=== PATIENT | female | born 1980 | race Caucasian/White ===

== ENCOUNTER 2020-02-28 16:30 | Emergency (ER) | payer OTHER, SELFPAY ==
--- NOTE | ~2020-02-28 | CT_ITS ---
EXAMINATION: CTA chest PE protocol DATE: 02/28/2020 17:51 INDICATION: Chest pain radiating to the back TECHNIQUE: Computed tomography (CT) pulmonary angiogram of the chest was performed with 100 mL Omnipa que-350 intravenous contrast. Additional 3D reconstructions utilizing coronal maximum intensity proje ction (MIP) were performed. Automated exposure control and iterative reconstruction technique were em ployed. The dose-length product was 194.17 mGy-cm. COMPARISON: None FINDINGS: Excellent contrast opacification of the pulmonary arteries. There is mild streak artifact from dense contrast in the superior vena cava and right atrium. Minimal motion artifact yielding does not signif icantly limit evaluation. No pulmonary embolism. Mild dependent subsegmental atelectasis in the bilat eral lower lobes. No pneumonia, pulmonary edema, pleural effusion or pneumothorax. Heart size is norm al. No pericardial effusion. Thoracic aorta is normal in caliber with no dissection. No pathologicall y enlarged thoracic lymphadenopathy. Bilateral breast implants. Visualized upper abdomen and bones ar e unremarkable. IMPRESSION: 1. No pulmonary embolism or other acute cardiopulmonary disease. Reviewed, dictated and finalized at location A.
--- NOTE | ~2020-02-28 | XR_ITS ---
EXAMINATION: XR chest 2V DATE: 02/28/2020 17:27 INDICATION: One day of Central chest pain TECHNIQUE: PA and lateral views of the chest were obtained. COMPARISON: Chest radiograph dated 10/04/2019 FINDINGS: The lungs remain clear with no focal airspace opacities, pulmonary edema, pleural effusion or pneumot horax. The cardiomediastinal silhouette is normal. Bilateral breast implants along with a few small s urgical clips along the anterior left and right chest wall. Bones are unremarkable. IMPRESSION: 1. No acute cardiopulmonary disease. Reviewed, dictated and finalized at location A.
--- NOTE | 2020-02-28 16:33 | ECG_ITS ---
Measurements Intervals [place] Rate: 64 P: 48 AL: 155 QRS: 33 QRSD: 97 T: 14 QT: 416 QTc: 429 Interpretive Statements SINUS RHYTHM INCOMPLETE RIGHT BUNDLE BRANCH BLOCK BORDERLINE ECG Electronically Signed On 02-29-2020 9:16:02 CDT by Live Ayala D.O.
[2020-02-28 16:40] VITALS: BP 175/110; PULSE 70; RESP 18; TEMP 36.5; O2SAT 100
--- NOTE | 2020-02-28 16:58 | ED.CHESTPAIN ---
HPI - Chest Pain General Chief Complaint: Chest Pain Stated Complaint: cp Time Seen by Provider: 02/28/20 16:38 History of Present Illness HPI narrative: Patient presents for chest pain for a couple days started beneath the left breast moved to the middle, then radiated to between her shoulder blades. She says currently between her shoulder blades and low 4 out of 10. She denies cough fever chills or sweats. She is worried it might have something to do with her breast reconstruction She was diagnosed with a breast mass in her 20s had bilateral mastectomy and implants. The mass was benign. She also complains of a headache and some diffuse rash. MD complaint: chest pain Pertinent past history: other (Bilateral mastectomy and breast implants.) Onset (ago): day(s) Timing of current episode: still present Prior episodes: No Onset: during rest Pain radiation: back Severity: moderate Quality: sharp Relieving factors: nothing Exacerbating factors: nothing Related Data Home Medications Medication Instructions Recorded Confirmed estradiol 2 mg tablet 2 mg PO HS 08/26/19 10/05/19 sertraline 100 mg PO HS 10/05/19 10/05/19 famotidine 40 mg tablet 40 mg PO DAILY 01/29/20 01/29/20 Allergies Allergy/AdvReac Type Severity Reaction Status Date / Time cefprozil Allergy Unknown unknown Verified 02/28/20 16:39 Review of Systems Review of Systems: Narrative: CONSTITUTIONAL: Denies fever, chills, or sweats. EYES: Denies visual changes, redness, or discharge. ENT: Denies rhinorrhea, congestion, sore throat, or otalgia. CARDIOVASCULAR: Denies palpitations, or edema. RESPIRATORY: Denies cough or dyspnea. GASTROINTESTINAL: Denies abdominal pain, nausea, vomiting, or diarrhea. GENITOURINARY: Denies dysuria or hematuria. SKIN: Denies itching. MUSCULOSKELETAL: Denies back pain, joint pain, or myalgia. NEUROLOGIC: Denies numbness, or weakness. PSYCHIATRIC: Denies anxiety or depression. [facility] Past Medical History Medical History Allergic rhinitis Anxiety disorder, unspecified Current moderate episode of major depressive disorder without prior episode Essential (primary) hypertension Not controlled Gastro-esophageal reflux disease without esophagitis History of breast cancer Status post bilateral mastectomy. No chemo radiation Hypothyroidism Irritable bowel syndrome with diarrhea Surgical History Surgical History H/O bilateral mastectomy Due to breast cancer. History of bladder surgery History of hysterectomy History of total hysterectomy Family History Family History Father Malignant neoplasm of prostate CAD (coronary artery disease) Acute myocardial infarction Lymphoma Hypertension Mother Family history of malignant neoplasm of breast in first degree relative Sibling Hypertension Grandparent Breast cancer Grandparent Cerebrovascular accident Social History Social History Social History: She is . She smokes a a 4th to half pack of cigarettes a day. 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 She has 3 daughters. Patient wishes to be a full code. She does not have a durable power ip technology transactions attorney. Smoking packs per day: 0.5 Smoking cigarettes per day: 10.0 Years smoked: 16 Smoking pack-years: 8.00 Smoking status: Light tobacco smoker Tobacco type: cigarettes Second hand tobacco smoke exposure: No Additional smoking assessment comments: Smokes 2-10 cigarettes a day on and off for 16 yrs Alcohol intake: current Drinks per week: 4 Substance use: never Gender identity (if verbalized by the patient): Female Spiritual care concerns: No Exam Narrative: Exam Narrative: GENERAL: Well-appearing, well-nourished, and in no acute distress. Well-groomed HEAD: Normocephalic, atraumatic.
[2020-02-28 17:00] LABS: Basophils Percent Auto 0.6 % (0.2-1.2); Eosinophils Absolute Auto 0.1 K/mm3 (0-0.3); Eosinophils Percent Auto 1.7 % (0-4.4); Hematocrit 39.1 % (37.0-47.0); Hemoglobin 13.4 g/dL (12.0-15.0); Immature Granulocyte Absolute 0.02 K/mm3 (0.00-0.031); Immature Granulocyte Percent A 0.3 % (0-0.5); Lymphocytes Absolute Auto 1.89 K/mm3 (0.9-3.2); Lymphocytes Percent Auto 26.2 % (18.3-44.2); Mean Corpuscular HGB Conc 34.3 g/dl (32-36); Mean Corpuscular Hemoglobin 31.1 pg (26-34); Mean Corpuscular Volume 90.7 fl (80-100); Monocytes Absolute Auto 0.5 K/mm3 (0.1-0.6); Monocytes Percent Auto 6.4 % (2.6-8.5); Neutrophils Absolute Auto 4.7 K/mm3 (1.3-6.7); Neutrophils Percent Auto 64.8 % (45.5-73.1); Platelet Count Result 222 k/mm3 (150-375); Red Blood Count 4.31 M/mm3 (4.2-5.4); Red Cell Distribution Width 12.9 % (11.5-14.5); White Blood Count 7.2 K/mm3 (4.5-10.0)
[2020-02-28 17:11] LABS: Blood Urea Nitrogen 14 mg/dL (7-17); Calcium 9.3 mg/dL (8.4-10.2); Carbon Dioxide 28 mmol/L (22-30); Chloride 103 mmol/L (98-107); Estimated CRCL calculation 78 ml/min; Estimated Glomerular Filt Rate > 60; Glucose 104 mg/dL (65-105); Potassium 3.5 mmol/L (3.4-5.0); Sodium 137 mmol/L (137-145)
[2020-02-28 17:15] LABS: INR 1.1; Prothrombin Time 13.5 Seconds (11.1-14.7)
[2020-02-28 17:16] LABS: Partial Thromboplastin Time 29.6 SECONDS (22.3-36.8)
[2020-02-28] MEDS: FAMOTIDINE 20 MG/2 ML VIAL IV PUSH (17:16)
[2020-02-28] MEDS: ASPIRIN 81 MG CHEWABLE TABLET 324 MG PO (17:16)
[2020-02-28 17:19] LABS: D Dimer 0.48 ug/mL (<0.48)
[2020-02-28 17:23] LABS: Troponin I < 0.012 ng/mL (0.000-0.034)
[2020-02-28 17:33] LABS: Ethanol < 10 mg/dL (<10)
[2020-02-28] MEDS: ACETAMINOPHEN 325 MG TABLET 650 MG PO (17:55)
--- NOTE | 2020-02-28 17:57 | PC.NURSE ---
PT UNHAPPY WITH PAIN MED ORDERS. PT ASKING FOR MORE PAIN MEDS. NO NEW ORDERS FROM THE PROVIDER AT THIS TIME
[2020-02-28 18:00] VITALS: BP 163/102; PULSE 67; RESP 16; O2SAT 97
[2020-02-28 18:33] LABS: Amphetamine Screen Urine Negative (Negative); Barbiturate Screen Urine Negative (Negative); Benzodiazepines Screen Urine Positive (Negative); Cannabinoid Screen Urine Negative (Negative); Cocaine Screen Urine Negative (Negative); Methadone Screen Urine Negative (Negative); Opiate Screen Urine Negative (Negative); Phencyclidine Screen Urine Negative (Negative)
[2020-02-28] MEDS: MORPHINE SULFATE 4 MG/ML INJ IV PUSH (18:45)
[2020-02-28] MEDS: ONDANSETRON INJ 4 MG/2 ML VIAL IV PUSH (18:49)
[2020-02-28 19:00] VITALS: BP 164/99; PULSE 60; RESP 18; O2SAT 99
== END 2020-02-28 19:00 | disposition home or self-care (01) ==
PROVIDERS: Emergency Provider Emergency Medicine; PCP Family Medicine
DX: R07.89 Other chest pain (principal); F41.9 Anxiety disorder, unspecified; F32.9 Major depressive disorder, single episode, unspecified; I10 Essential (primary) hypertension; Z85.3 Personal history of malignant neoplasm of breast; Z90.13 Acquired absence of bilateral breasts and nipples; E03.9 Hypothyroidism, unspecified; K58.0 Irritable bowel syndrome with diarrhea; F17.210 Nicotine dependence, cigarettes, uncomplicated; I45.10 Unspecified right bundle-branch block
CPT/HCPCS: 36415; 71046; 71275; 80048; 80307; 84484; 85025; 85380; 85610; 85730; 93005; 96374; 96375; 99284; A9270; J2270; J2405; Q9967

== ENCOUNTER 2020-03-19 13:04 | Emergency (ER) | payer OTHER, SELFPAY ==
[2020-03-19 13:14] VITALS: BP 147/96; PULSE 77; RESP 18; TEMP 36.5; O2SAT 99
--- NOTE | 2020-03-19 13:38 | ED.SKABFB ---
HPI - Skin/Abscess/Foreign Bdy General Chief complaint: Skin/Abscess/Foreign Body Stated complaint: allergic reaction Time Seen by Provider: 03/19/20 13:23 Source: patient, RN notes reviewed and old records reviewed Mode of arrival: ambulatory Limitations: no limitations History of Present Illness HPI narrative: Patient presents today complaining of a 5-day history of severely pruritic, red rash to bilateral arms and legs. States she has been working outside and is allergic to everything outside. Review of PCP chart shows that patient has been on allergy shots in the past for environmental allergies, but is no longer. States that she is overwhelmed with the itching. She has been taking a dose of benadryl at night, but no other OTC medications. She called her PCP office and was told to come in for an allergy shot. Denies shortness of breath, facial swelling, difficulty swallowing. Review of chart shows that patient was seen in the ER at [facility] on 02/28/20 for atypical chest pain and note states that patient also complained of diffuse rash at that time that was not noted to be present on exam findings. MD complaint: rash Related Data Home Medications Medication Instructions Recorded Confirmed estradiol 2 mg tablet 2 mg PO HS 08/26/19 03/19/20 sertraline 100 mg PO HS 10/05/19 03/19/20 famotidine 40 mg tablet 40 mg PO DAILY 01/29/20 03/19/20 Allergies Allergy/AdvReac Type Severity Reaction Status Date / Time cefprozil Allergy Unknown unknown Verified 03/19/20 13:12 Review of Systems Review of Systems: Narrative: CONSTITUTIONAL: Denies body aches, fever, chills, or sweats. EYES: Denies visual changes, redness, or discharge. ENT: Denies rhinorrhea, congestion, sore throat, or otalgia. CARDIOVASCULAR: Denies chest pain, palpitations, or edema. RESPIRATORY: Denies cough or dyspnea. GASTROINTESTINAL: Denies abdominal pain, nausea, vomiting, or diarrhea. GENITOURINARY: Denies dysuria or hematuria. SKIN: Severely pruritic rash MUSCULOSKELETAL: Denies back pain, joint pain, or myalgia. NEUROLOGIC: Denies headache, numbness, tingling, or weakness. PSYCH: Denies depression or anxiety. [facility] Social History Social History Social History: She is . She smokes a a 4th to half pack of cigarettes a day. 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 She has 3 daughters. Patient wishes to be a full code. She does not have a durable power ground crew chief. Smoking packs per day: 0.5 Smoking cigarettes per day: 10.0 Years smoked: 16 Smoking pack-years: 8.00 Smoking status: Light tobacco smoker Tobacco type: cigarettes Second hand tobacco smoke exposure: No Additional smoking assessment comments: Smokes 2-10 cigarettes a day on and off for 16 yrs Alcohol intake: current Drinks per week: 4 Substance use: never Gender identity (if verbalized by the patient): Female Spiritual care concerns: No Exam Narrative: Exam Narrative: GENERAL: Well-appearing, well-nourished, and in no acute distress. HEAD: Normocephalic, atraumatic. EYES: EOMI. No redness or drainage. Conjunctivae normal. ENT: Mucous membranes pink and moist. Nares clear. No rhinorrhea. TMs normal bilaterally. Throat normal. Uvula midline. No facial swelling. NECK: Normal AROM. Supple. No lymphadenopathy. CHEST: No respiratory distress. Clear to auscultation. HEART: Regular rate and rhythm. No murmur appreciated. Normal peripheral pulses. ABDOMEN: Soft, nontender, nondistended, normal active bowel sounds. MUSCULOSKELETAL: No bony tenderness. EXTREMITIES: Normal range of motion. No edema. SKIN: Warm, dry. Capillary refill normal. Normal skin turgor. Very faint, erythematous, macular rash to the right arm with a few scattered papules. No rash was noted to the left arm or either leg. NEURO: No focal deficits. Alert and oriented x3. Gait steady. PSYCH: Anxious Course Course Emergenc
== END 2020-03-19 14:00 | disposition home or self-care (01) ==
PROVIDERS: Emergency Provider Nurse Practitioner; PCP Family Medicine
DX: L25.9 Unspecified contact dermatitis, unspecified cause (principal); I10 Essential (primary) hypertension; K21.9 Gastro-esophageal reflux disease without esophagitis; F17.210 Nicotine dependence, cigarettes, uncomplicated
CPT/HCPCS: 96372; 99213; G0463; J1200

== ENCOUNTER 2020-08-20 14:14 | Emergency (ER) | payer OTHER, SELFPAY ==
[2020-08-20] VITALS (8 sets, daily range): BP systolic 149–170; BP diastolic 73–116; PULSE 54–93; RESP 15–20; TEMP 36.3; O2SAT 98–100
--- NOTE | ~2020-08-20 | XR_ITS ---
EXAMINATION: XR chest 2V DATE: 08/20/2020 14:49 INDICATION: Midsternal chest pain TECHNIQUE: PA and lateral views of the chest are obtained. COMPARISON: 02/28/2020 FINDINGS: The lungs are free of acute opacities. There is no pleural effusion or pneumothorax. The ca rdiomediastinal silhouette is normal. There is mild thoracic spondylosis. There are changes of bilate ral mastectomy with implant reconstruction. IMPRESSION: 1. No acute cardiopulmonary abnormality. Reviewed, dictated and finalized at location A. E RIDING COACH OR INSTRUCTOR
--- NOTE | 2020-08-20 14:16 | ECG_ITS ---
Measurements Intervals [place] Rate: 65 P: 49 MT: 148 QRS: 31 QRSD: 98 T: 26 QT: 415 QTc: 431 Interpretive Statements SINUS RHYTHM INCOMPLETE RIGHT BUNDLE BRANCH BLOCK BORDERLINE ECG Electronically Signed On 08-20-2020 14:40:35 TIMBER INSPECTOR by Live Ayala D.O.
[2020-08-20 14:52] LABS: Basophils Percent Auto 0.4 % (0.2-1.2); Eosinophils Absolute Auto 0.1 K/mm3 (0-0.3); Eosinophils Percent Auto 1.6 % (0-4.4); Hematocrit 36.2 % (37.0-47.0); Hemoglobin 12.3 g/dL (12.0-15.0); Immature Granulocyte Absolute 0.02 K/mm3 (0.00-0.031); Immature Granulocyte Percent A 0.3 % (0-0.5); Lymphocytes Absolute Auto 1.74 K/mm3 (0.9-3.2); Lymphocytes Percent Auto 24.8 % (18.3-44.2); Mean Corpuscular Hemoglobin 30.8 pg (26-34); Mean Corpuscular Volume 90.5 fl (80-100); Mean Platelet Volume 12.2 fl (7.4-10.4); Monocytes Absolute Auto 0.5 K/mm3 (0.1-0.6); Monocytes Percent Auto 6.7 % (2.6-8.5); Neutrophils Absolute Auto 4.7 K/mm3 (1.3-6.7); Neutrophils Percent Auto 66.2 % (45.5-73.1); Platelet Count Result 217 k/mm3 (150-375)
[2020-08-20 15:04] LABS: Anion Gap 8 mmol/L (8-16); Blood Urea Nitrogen 15 mg/dL (7-17); Calcium 9.5 mg/dL (8.4-10.2); Carbon Dioxide 30 mmol/L (22-30); Chloride 104 mmol/L (98-107); Estimated CRCL calculation 69 ml/min; Estimated Glomerular Filt Rate > 60; Glucose 91 mg/dL (65-105); Potassium 4.1 mmol/L (3.4-5.0); Sodium 142 mmol/L (137-145)
[2020-08-20 15:16] LABS: Troponin I < 0.012 ng/mL (0.000-0.034)
[2020-08-20 15:23] LABS: INR 0.9; Partial Thromboplastin Time 27.9 SECONDS (22.3-36.8)
[2020-08-20] MEDS: ONDANSETRON INJ 4 MG/2 ML VIAL IV PUSH (16:30)
--- NOTE | 2020-08-20 17:09 | ED.CHESTPAIN ---
HPI - Chest Pain General Chief Complaint: Chest Pain Stated Complaint: chest pain Time Seen by Provider: 08/20/20 15:53 History of Present Illness HPI narrative: Patient is a 40-year-old female who presents the ER from the cardiology office after reporting that she was having chest pain. She reports to me she has been having intermittent chest pain over the last year. It is in the center of her chest. Occasionally feels like pressure and also occasionally feels sharp. Sometimes it radiates up into her neck but she also has a known hiatal hernia. She only intermittently takes her acid reflux medication. Does not seem to be modified with exertion. Reports she had elevated blood pressures as well at the doctor's office and that is no reason why she was referred here. She reports she is compliant with her home medication does not typically have significantly elevated blood pressures. Patient also reports intermittent dizziness that is more like lightheaded nonrotational. No association with nausea or vomiting. She does also have IBS and is having some nausea at this time. Related Data Home Medications Medication Instructions Recorded Confirmed estradiol 2 mg tablet 2 mg PO HS 08/26/19 07/20/20 famotidine 40 mg tablet 40 mg PO DAILY 01/29/20 07/20/20 Allergies Allergy/AdvReac Type Severity Reaction Status Date / Time cefprozil Allergy Severe Anaphylaxis Verified 08/20/20 14:29 Review of Systems Review of Systems: All systems reviewed & are unremarkable except as noted in HPI and below Constitutional: Constitutional: Denies chills and Denies fever(s) ENT: Denies nasal congestion and Denies sore throat Cardiovascular: Cardiovascular: Reports chest pain, Denies rapid heart rate and Reports radiating jaw, neck or arm pain Respiratory: Respiratory: Denies cough and Denies dyspnea Gastrointestinal: Gastrointestinal: Denies abdominal pain, Reports nausea and Denies vomiting Neurologic: Reports dizziness, Denies focal weakness and Denies numbness PMFSH Past Medical History Medical History (Updated 08/20/20 @ 18:27 by Alex Solis MD) Allergic rhinitis Anxiety disorder, unspecified Current moderate episode of major depressive disorder without prior episode Essential (primary) hypertension Not controlled Gastro-esophageal reflux disease without esophagitis History of breast cancer Status post bilateral mastectomy. No chemo radiation Hypothyroidism Irritable bowel syndrome with diarrhea Surgical History Surgical History H/O bilateral mastectomy Due to breast cancer. History of bladder surgery History of hysterectomy History of total hysterectomy Family History Family History Father Malignant neoplasm of prostate CAD (coronary artery disease) Acute myocardial infarction Lymphoma Hypertension Mother Family history of malignant neoplasm of breast in first degree relative Sibling Hypertension Grandparent Breast cancer Grandparent Cerebrovascular accident Social History Social History Social History: She is . She smokes a a 4th to half pack of cigarettes a day. 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 Patient wishes to be a full code. She does not have a durable power trademark attorney. Smoking packs per day: 0.5 Smoking cigarettes per day: 10.0 Years smoked: 16 Smoking pack-years: 8.00 Smoking status: Light tobacco smoker Tobacco type: cigarettes Second hand tobacco smoke exposure: No Additional smoking assessment comments: Smokes 2-10 cigarettes a day on and off for 16 yrs Alcohol intake: current Drinks per week: 4 Substance use: never Gender identity (if verbalized by the patient): Female Spiritual care concerns: No Exam Narrative: Exam Narrative: GENERAL: Well-appearing, wel
[2020-08-20 17:52] LABS: Troponin I < 0.012 ng/mL (0.000-0.034)
== END 2020-08-20 19:02 | disposition home or self-care (01) ==
PROVIDERS: Emergency Provider Emergency Medicine; PCP Family Medicine
DX: R07.9 Chest pain, unspecified (principal); I10 Essential (primary) hypertension; K21.9 Gastro-esophageal reflux disease without esophagitis; Z85.3 Personal history of malignant neoplasm of breast; Z90.13 Acquired absence of bilateral breasts and nipples; E03.9 Hypothyroidism, unspecified; K58.0 Irritable bowel syndrome with diarrhea; F17.210 Nicotine dependence, cigarettes, uncomplicated
CPT/HCPCS: 36415; 71046; 80048; 84484; 85025; 85610; 85730; 93005; 96374; 99284; J2405

== ENCOUNTER 2020-09-21 11:58 | Outpatient (NON) | payer OTHER, SELFPAY ==
[2020-09-21 23:32] LABS: SARS-CoV-2 RNA PCR Negative
== END 2020-09-21 11:59 ==
LOC: ANHCOVIDDT 12:00
PROVIDERS: PCP Family Medicine; Visit Provider Physician Assistant
DX: R68.89 Other general symptoms and signs (principal); Z20.828 Contact with and (suspected) exposure to other viral communicable diseases
CPT/HCPCS: 87635; C9803; U0003

== ENCOUNTER 2021-01-12 20:47 | Observation (INO) | payer OTHER, SELFPAY ==
--- NOTE | ~2021-01-12 | XR_ITS ---
EXAMINATION: XR chest 2V DATE: 01/12/2021 21:22 INDICATION: Midsternal chest pain. TECHNIQUE: Frontal and lateral views of the chest were obtained. COMPARISON: Chest 2 views 08/20/2020, chest CT 02/28/2020 FINDINGS: The chest demonstrates clear lungs without pneumonia, pleural effusion, or pneumothorax. Th e heart size is normal. There are bilateral breast implants. Surgical clips in the right upper quadra nt are likely from cholecystectomy. IMPRESSION: 1. No acute cardiopulmonary disease. Reviewed, dictated and finalized at location A.
[2021-01-12 20:56] VITALS: BP 178/116; PULSE 78; RESP 16; TEMP 36.6; O2SAT 100
--- NOTE | 2021-01-12 21:04 | ECG_ITS ---
Measurements Intervals [place] Rate: 80 P: 55 MS: 159 QRS: 37 QRSD: 102 T: 19 QT: 402 QTc: 465 Interpretive Statements SINUS RHYTHM POSSIBLE LEFT ATRIAL ENLARGEMENT INCOMPLETE RIGHT BUNDLE BRANCH BLOCK BORDERLINE ST-T WAVE ABNORMALITY- ANTEROLAT/INF LEADS BORDERLINE ECG Electronically Signed On 01-13-2021 7:09:03 CDT by Live Ayala D.O.
--- NOTE | 2021-01-12 21:12 | ED.CHESTPAIN ---
HPI - Chest Pain General Chief Complaint: Chest Pain Stated Complaint: chest pain x 1 day Time Seen by Provider: 01/12/21 21:09 History of Present Illness HPI narrative: 40 yo female w/ h/o htn presents to the ED for chest pain. She reports that she has had CP intermittently since early this morning. The pain is substernal. Radiates to left shoulder. At times severe. This is associated with mild nausea and SOB. She has also noted that her blood pressure has been significantly elevated during this time. She tried nitro with some improvement in pain and blood pressure. Related Data Home Medications Medication Instructions Recorded Confirmed estradiol 2 mg tablet 2 mg PO HS 08/26/19 01/13/21 nitroglycerin 0.4 mg SUBLINGUAL Q5MIN PRN 01/13/21 01/13/21 omeprazole 20 mg PO DAILY 01/13/21 01/13/21 Allergies Allergy/AdvReac Type Severity Reaction Status Date / Time cefprozil Allergy Severe Anaphylaxis Verified 01/13/21 00:41 Review of Systems Review of Systems: All systems reviewed & are unremarkable except as noted in HPI and below Constitutional: Constitutional: Denies fever(s) Eyes: Eyes: Reports no additional eye complaints ENT: Reports system reviewed and no additional complaints, except as documented Cardiovascular: Cardiovascular: Reports chest pain and Reports radiating jaw, neck or arm pain Respiratory: Respiratory: Denies chest congestion, Denies cough and Reports dyspnea Gastrointestinal: Gastrointestinal: Denies abdominal pain and Reports nausea Genitourinary: Genitourinary: Reports no additional female genitourinary complaints Musculoskeletal: Musculoskeletal: Denies back pain Neurologic: Denies confusion, Denies dizziness and Denies weakness [facility] Past Medical History Medical History Allergic rhinitis Anxiety disorder, unspecified Current moderate episode of major depressive disorder without prior episode Essential (primary) hypertension Not controlled Gastro-esophageal reflux disease without esophagitis History of breast cancer Status post bilateral mastectomy. No chemo radiation Hypothyroidism Irritable bowel syndrome with diarrhea Surgical History Surgical History H/O bilateral mastectomy Due to breast cancer. History of bladder surgery History of cholecystectomy History of hysterectomy History of total hysterectomy Family History Family History Father Malignant neoplasm of prostate CAD (coronary artery disease) Acute myocardial infarction Lymphoma Hypertension Mother Family history of malignant neoplasm of breast in first degree relative Sibling Hypertension Grandparent Breast cancer Grandparent Cerebrovascular accident Social History Social History Social History: She is . She smokes a a 4th to half pack of cigarettes a day. 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 Patient wishes to be a full code. She does not have a durable power fluid power mechanic. Smoking packs per day: 0.5 Smoking cigarettes per day: 10.0 Years smoked: 16 Smoking pack-years: 8.00 Smoking status: Former smoker Tobacco type: cigarettes Second hand tobacco smoke exposure: No Additional smoking assessment comments: Smokes 2-10 cigarettes a day on and off for 16 yrs Alcohol intake: current Drinks per week: 4 Substance use: never Gender identity (if verbalized by the patient): Female Spiritual care concerns: No Exam Const: General: healthy appearing, no acute distress and alert Orientation/consciousness: patient oriented x3 HENMT: Head: normal to inspection Neck: Neck: normal visual inspection Chest: Chest palpation & inspection: no tenderness Resp: Effort & Inspection: normal respiratory effort Auscultation: clear to auscultati
[2021-01-12 21:15] LABS: Basophils Percent Auto 0.4 % (0.2-1.2); Eosinophils Absolute Auto 0.1 K/mm3 (0-0.3); Hematocrit 36.2 % (37.0-47.0); Hemoglobin 12.2 g/dL (12.0-15.0); Immature Granulocyte Absolute 0.01 K/mm3 (0.00-0.031); Immature Granulocyte Percent A 0.1 % (0-0.5); Lymphocytes Absolute Auto 2.23 K/mm3 (0.9-3.2); Lymphocytes Percent Auto 26.6 % (18.3-44.2); Mean Corpuscular HGB Conc 33.7 g/dl (32-36); Mean Corpuscular Hemoglobin 30.4 pg (26-34); Mean Corpuscular Volume 90.3 fl (80-100); Mean Platelet Volume 12.4 fl (7.4-10.4); Monocytes Absolute Auto 0.5 K/mm3 (0.1-0.6); Monocytes Percent Auto 5.7 % (2.6-8.5); Neutrophils Absolute Auto 5.6 K/mm3 (1.3-6.7); Neutrophils Percent Auto 66.2 % (45.5-73.1); Platelet Count Result 185 k/mm3 (150-375); Red Blood Count 4.01 M/mm3 (4.2-5.4); Red Cell Distribution Width 13.2 % (11.5-14.5); White Blood Count 8.4 K/mm3 (4.5-10.0)
[2021-01-12 21:25] LABS: Prothrombin Time 13.6 Seconds (11.1-14.7)
[2021-01-12 21:26] LABS: Anion Gap 7 mmol/L (8-16); Blood Urea Nitrogen 19 mg/dL (7-17); Carbon Dioxide 26 mmol/L (22-30); Chloride 105 mmol/L (98-107); Estimated CRCL calculation 78 ml/min; Estimated Glomerular Filt Rate > 60; Glucose 80 mg/dL (65-105); Partial Thromboplastin Time 28.6 SECONDS (22.3-36.8); Potassium 3.5 mmol/L (3.4-5.0); Sodium 138 mmol/L (137-145)
[2021-01-12 21:38] LABS: Troponin I < 0.012 ng/mL (0.000-0.034)
[2021-01-12] MEDS: NITROGLYCERIN OINTMENT 1 INCH DOSE TRANSDERM (21:53)
[2021-01-12] MEDS: ASPIRIN 81 MG CHEWABLE TABLET 324 MG PO (21:53)
[2021-01-12 22:02] VITALS: BP 167/118; PULSE 80; RESP 20; O2SAT 100
[2021-01-12] MEDS: ALPRAZolam (*CRX) 0.25 MG TABLET 1 MG PO (22:50)
[2021-01-13] VITALS (20 sets, daily range): BP systolic 131–149; BP diastolic 79–101; PULSE 69–93; RESP 11–19; TEMP 36.1–36.9; O2SAT 98–99; BMI 25.0
[2021-01-13] MEDS: hydrALAZINE HCL 20 MG/ML VIAL IV PUSH (00:07)
--- NOTE | 2021-01-13 00:19 | PM.IMHP ---
H&P: HPI History of Present Illness Date/Time: 01/13/21 00:19 Chief Complaint: chest pain yesterday all day Narrative: This is a 40-year-old female with known history of chronic hypertension, anxiety, and depression who presented to the hospital for evaluation of midsternal chest pain. The patient has had intermittent chest pain over the past few weeks and just recently had a stress test at her press maintainer's office about a week ago which was positive. The patient was scheduled to have an elective cardiac angiogram done this following Sunday. Today the patient decided to come to the emergency room as she has had ongoing continuous midsternal chest pain radiating to her left arm throughout the day today. Associated symptoms include nausea and shortness of breath. Nitroglycerin has helped to alleviated her chest pain somewhat although she continues to have some chest discomfort. Patient denies any other significant symptoms such as fever, chills, cough, palpitations, sore throat, shortness of breath, abdominal pain, dysuria, nausea, vomiting, hematuria, diarrhea, rectal bleeding, or lower extremity swelling. The patient is known to smoke about half a pack of cigarettes daily. She does report early heart disease in her family. Cardiology has been consulted by ER provider and we have been asked to admit the patient to the hospital for further care. Her initial troponin is negative and her initial EKG is unremarkable. No other complaints at this time. While in the emergency room the patient has had elevated blood pressure and she reports that she has had difficult to control hypertension recently at home. Review of Systems Review of Systems: All systems reviewed & are unremarkable except as noted in HPI and below PMFSH Past Medical History Medical History Allergic rhinitis Anxiety disorder, unspecified Current moderate episode of major depressive disorder without prior episode Essential (primary) hypertension Not controlled Gastro-esophageal reflux disease without esophagitis History of breast cancer Status post bilateral mastectomy. No chemo radiation Hypothyroidism Irritable bowel syndrome with diarrhea Surgical History Surgical History H/O bilateral mastectomy Due to breast cancer. History of bladder surgery History of cholecystectomy History of hysterectomy History of total hysterectomy Family History Family History Father Malignant neoplasm of prostate CAD (coronary artery disease) Acute myocardial infarction Lymphoma Hypertension Mother Family history of malignant neoplasm of breast in first degree relative Sibling Hypertension Grandparent Breast cancer Grandparent Cerebrovascular accident Social History Social History Social History: She is . She smokes a a 4th to half pack of cigarettes a day. 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 Patient wishes to be a full code. She does not have a durable power bankruptcy attorney. Smoking packs per day: 0.5 Smoking cigarettes per day: 10.0 Years smoked: 16 Smoking pack-years: 8.00 Smoking status: Current every day smoker Tobacco type: cigarettes Second hand tobacco smoke exposure: No Additional smoking assessment comments: Smokes 2-10 cigarettes a day on and off for 16 yrs Alcohol intake: current Drinks per week: 4 Substance use: never Gender identity (if verbalized by the patient): Female Spiritual care concerns: No Meds Home Medications and Allergies Home Medications Medication Instructions Recorded Confirmed Type estradiol 2 mg tablet 2 mg PO HS 08/26/19 07/20/20 History tramadol 50 mg tablet 50 mg PO Q6H PRN #15 tablet 05/04/20 07/20/20 Rx azelastine 137 mcg (0.1 %) nasal 1 spray I
--- NOTE | 2021-01-13 01:14 | ECG_ITS ---
Measurements Intervals [place] Rate: 86 P: 57 WI: 156 QRS: 42 QRSD: 105 T: 26 QT: 401 QTc: 481 Interpretive Statements SINUS RHYTHM POSSIBLE LEFT ATRIAL ENLARGEMENT INCOMPLETE RIGHT BUNDLE BRANCH BLOCK BORDERLINE ST-T WAVE ABNORMALITY- ANT/INF LEADS BASELINE ARTIFACT- III, AVR, AVL, AVF BORDERLINE ECG Electronically Signed On 01-13-2021 7:13:32 CDT by Live Ayala D.O.
[2021-01-13] MEDS: LORazepam (*CRX) 0.5 MG TABLET PO ×3 (01:27→20:37)
[2021-01-13] MEDS: ACETAMINOPHEN 325 MG TABLET 650 MG PO ×3 (01:27→16:30)
[2021-01-13 02:08] LABS: Troponin I < 0.012 ng/mL (0.000-0.034)
[2021-01-13] MEDS: ONDANSETRON INJ 4 MG/2 ML VIAL IV PUSH (02:36)
[2021-01-13] MEDS: MAG HYDROX/AL HYDROX/SIMETH 30 ML UDC PO (02:36)
[2021-01-13] MEDS: PROCHLORPERAZINE MALEATE 5 MG TABLET 10 MG PO (05:17)
[2021-01-13 05:51] LABS: Anion Gap 4 mmol/L (8-16); Blood Urea Nitrogen 14 mg/dL (7-17); Calcium 8.8 mg/dL (8.4-10.2); Carbon Dioxide 29 mmol/L (22-30); Chloride 106 mmol/L (98-107); Cholesterol 178 mg/dL (0-200); Estimated CRCL calculation 78 ml/min; Estimated Glomerular Filt Rate > 60; Glucose 84 mg/dL (65-105); HDL Direct 77 mg/dL; Lipase 29 U/L (23-300); Potassium 3.2 mmol/L (3.4-5.0); Sodium 139 mmol/L (137-145); Triglycerides 104 mg/dL (<150)
[2021-01-13 06:02] LABS: LDL Cholesterol Direct 79 mg/dL
[2021-01-13 06:03] LABS: Troponin I < 0.012 ng/mL (0.000-0.034)
[2021-01-13] MEDS: LEVOTHYROXINE SODIUM 25 MCG TABLET PO (09:18)
[2021-01-13] MEDS: PANTOPRAZOLE SOD SESQUIHYDRATE 20 MG TAB PO (09:19)
[2021-01-13] MEDS: lisinopriL 10 MG TABLET 30 MG PO (09:19)
[2021-01-13] MEDS: ASPIRIN 81 MG ENTERIC TABLET PO (09:20)
--- NOTE | 2021-01-13 10:50 | PM.CNCAR ---
Assessment and Plan Assessment and plan (1) Tobacco dependence: Code(s): F17.200 - Nicotine dependence, unspecified, uncomplicated Status: Chronic Assessment and Plan: Smoking cessation (2) Uncontrolled hypertension: Code(s): I10 - Essential (primary) hypertension Status: Acute Assessment and Plan: Blood pressure is better controlled at this point. Continue lisinopril. Will start carvedilol 6.25 mg p.o. b.i.d.. (3) Abnormal stress test: Code(s): R94.39 - Abnormal result of other cardiovascular function study Status: Acute Assessment and Plan: Abnormal stress test as an outpatient was performed. Plan was for outpatient elective coronary angiogram next week. (4) Recurrent chest pain: Code(s): R07.9 - Chest pain, unspecified Status: Acute Assessment and Plan: She has recurrent chest pain which is responsive to nitroglycerin. Certainly she has high blood pressure and anxiety component but given her recurrent chest pain, abnormal stress test; I think it is reasonable to keep her admitted at this point and pursue inpatient coronary angiogram. This will likely happen tomorrow. Will keep her NPO after midnight. Will give her dose of enoxaparin 1 milligram/kilogram subcu x1. Continue aspirin 81 mg p.o. daily, beta-hodan, CARLIN-inhibitor and p.r.n. nitroglycerin overnight. (5) Hypokalemia: Code(s): E87.6 - Hypokalemia Status: Acute Assessment and Plan: Potassium chloride 40 mg p.o. x1 (6) History of COVID-19: Code(s): Z86.16 - Personal history of COVID-19 Status: Acute History of Present Illness History of Present Illness Consult date/time: 01/13/21 10:50 Requesting physician: Amauri Shields MD Consult reason: chest pain Reason For Visit: chest pain, uncontrolled hypertension Narrative: Date of service 01/13/2021: Reason consultation chest pain History: Patient is a 40-year-old female who I saw in the office last month because of chest pain. She has previously been seen by a different cardiology group in the area but was referred to me for further workup and evaluation. She did undergo a stress test in 2019. She also had a stress test performed in December of 2020. Most recent stress test was abnormal with 1.[address] segment depressions at peak exercise as well as exercise-induced chest pressure which resolved in recovery. She was scheduled for an outpatient cardiac catheterization next Sunday. However she came to the hospital last night because chest pain. She woke up 2 days ago at 3:00 a.m. with chest pain in the center of her chest that radiated into her back. It lasted for a few minutes. It then spontaneously went away. She woke up a couple more times throughout the night with more episodes of chest pain. She went to work yesterday and had chest pain off and on throughout the day usually lasting for a few minutes. Last night though while at rest she had some radiation to her left shoulder and tingling down into her left arm. She has also been a bit diaphoretic and clammy with these episodes as well as nauseated. Symptoms are occurring with and without activity. Last night her symptoms were becoming more frequent and more painful and so she decided to come to the hospital for further workup and evaluation. She did use nitroglycerin at home which did seem to help but then it came back. She was started on nitroglycerin paste which did help but she did have a headache with that and the paste was removed this morning. I did start her on carvedilol as an outpatient because of high blood pressure recently and her blood pressure overall has been better but was significantly elevated upon arrival to the emergency department. She has also been short of breath with and without activity. She denies any syncope, paroxysmal nocturnal dyspnea, orthopnea or edema. She did have a presyncopal episode while at work yesterd
[2021-01-13] MEDS: carvediloL 6.25 MG TABLET PO ×2 (14:24→20:37)
[2021-01-13] MEDS: POTASSIUM CHLORIDE 20 MEQ TABLET 40 MEQ PO (14:24)
[2021-01-13] MEDS: ENOXAPARIN 80 MG/0.8 ML SYRINGE 65 MG SUB-Q (14:25)
--- NOTE | 2021-01-13 16:43 | PM.IMPN ---
Progress Note: A&P Assessment and Plan (1) Chest pain: Qualifiers: Chest pain type: unspecified Qualified Code(s): R07.9 - Chest pain, unspecified Code(s): R07.9 - Chest pain, unspecified Status: Acute Assessment and Plan: The patient has been placed in observation status. Acute chest pain may be secondary to anxiety, elevated blood pressure, musculoskeletal, or less likely acute coronary syndrome. Telemetry. NPO. Trend troponin. Patient has had a prior cholecystectomy. We will check a lipase that has not been done yet. Nitroglycerin for any further chest pain. Continue aspirin therapy. Cardiology has been consulted by ER provider. Check lipid panel in a.m.. Appreciate cardiology input. 01/13/21 16:43 and patient is a 40-year-old feet with chronic history hypertension, anxiety and depression with complaint recurrent chest pain patient presented emergency department complaint of chest pain patient 3 sets of cardiac enzymes are negative there is no acute changes on her EKG patient is seen by Cardiology since patient has recurrent chest pain it would be prudent to evaluate the patient with angiogram to assess coronary artery disease patient is scheduled for cardiac catheterization tomorrow further recommendation to follow (2) Uncontrolled hypertension: Code(s): I10 - Essential (primary) hypertension Status: Acute Assessment and Plan: Monitor blood pressure. P.r.n. IV antihypertensives as needed for severely elevated blood pressure. Continue home oral antihypertensives. (3) Hypothyroidism: Qualifiers: Hypothyroidism type: unspecified Qualified Code(s): E03.9 - Hypothyroidism, unspecified Code(s): E03.9 - Hypothyroidism, unspecified Status: Chronic Assessment and Plan: Continue levothyroxine. Check TSH reflex T4 in a.m.. (4) Anxiety disorder, unspecified: Qualifiers: Anxiety disorder type: unspecified anxiety disorder Qualified Code(s): F41.9 - Anxiety disorder, unspecified Code(s): F41.9 - Anxiety disorder, unspecified Status: Chronic Assessment and Plan: PRN ativan. Resume home xanax in am. (5) Current moderate episode of major depressive disorder without prior episode: Code(s): F32.1 - Major depressive disorder, single episode, moderate Status: Chronic Assessment and Plan: Continue Sertraline. (6) Tobacco dependence: Code(s): F17.200 - Nicotine dependence, unspecified, uncomplicated Status: Chronic Assessment and Plan: I have counseled the patient for 3 minutes on tobacco cessation. She has verbalized her understanding and agreement of same. Additional Plan Date of service was January 13, 2021 at approximately midnight Subjective Date/time seen: 01/13/21 16:43 and patient is a 40-year-old feet with chronic history hypertension, anxiety and depression with complaint recurrent chest pain patient presented emergency department complaint of chest pain patient 3 sets of cardiac enzymes are negative there is no acute changes on her EKG patient is seen by Cardiology since patient has recurrent chest pain it would be prudent to evaluate the patient with angiogram to assess coronary artery disease patient is scheduled for cardiac catheterization tomorrow further recommendation to follow Review of Systems Review of Systems: All systems reviewed & are unremarkable except as noted in HPI and below Exam Narrative: Exam Narrative: Patient is comfortable, NAD HEENT: eyes are clear and none icteric LUNGS:CTA HEART: RR S1S2 ABD: BS+, Soft and nontender Lower extremities: no edema SKIN: nonjaundiced Neuro: grossly intact. Objective Data Vital Signs Vital Signs: Vital Signs - 24 hr 01/12/21 20:56 01/12/21 22:02 01/13/21 00:40 Temperature 97.8 F Pulse Rate 78 80 90 Respiratory Rate 16 20 18 Blood Pressure 178/116 H 167/118 H 141/93 H Pulse Oximetry 100 100 99
[2021-01-13] MEDS: SERTRALINE HCL 50 MG TABLET 100 MG PO (20:37)
[2021-01-13] MEDS: estradioL 1 MG TABLET 2 MG PO (20:38)
--- NOTE | 2021-01-13 22:02 | PC.NURSE ---
Report given to Alejandra RN, patient to go to [facility] as IMU patient. No further questions. All belongings and chart gathered.
[2021-01-14] VITALS (23 sets, daily range): BP systolic 120–167; BP diastolic 80–106; PULSE 61–92; RESP 12–18; TEMP 36.3–36.9; O2SAT 97–100
[2021-01-14] MEDS: diphenhydrAMINE HCl CAP 25 MG CAPSULE PO (00:12)
[2021-01-14] MEDS: hydrALAZINE HCL 20 MG/ML VIAL 10 MG IV PUSH ×2 (00:13→12:20)
[2021-01-14] MEDS: ACETAMINOPHEN 325 MG TABLET 650 MG PO (01:59)
[2021-01-14] MEDS: LEVOTHYROXINE SODIUM 25 MCG TABLET PO (05:46)
--- NOTE | 2021-01-14 08:30 | PC.NURSE ---
DR CHRISTINE HERE TO SEE PT.
[2021-01-14] MEDS: ASPIRIN 81 MG ENTERIC TABLET PO (08:43)
[2021-01-14] MEDS: PANTOPRAZOLE SOD SESQUIHYDRATE 20 MG TAB PO (08:44)
[2021-01-14] MEDS: carvediloL 6.25 MG TABLET PO (08:44)
[2021-01-14] MEDS: lisinopriL 10 MG TABLET 30 MG PO (08:44)
[2021-01-14 08:53] LABS: Hematocrit 37.5 % (37.0-47.0); Hemoglobin 12.9 g/dL (12.0-15.0); Mean Corpuscular HGB Conc 34.4 g/dl (32-36); Mean Corpuscular Hemoglobin 30.6 pg (26-34); Mean Corpuscular Volume 89.1 fl (80-100); Platelet Count Result 180 k/mm3 (150-375); Red Blood Count 4.21 M/mm3 (4.2-5.4); Red Cell Distribution Width 13.1 % (11.5-14.5); White Blood Count 6.9 K/mm3 (4.5-10.0)
[2021-01-14 09:04] LABS: Anion Gap 3 mmol/L (8-16); Blood Urea Nitrogen 11 mg/dL (7-17); Calcium 8.8 mg/dL (8.4-10.2); Carbon Dioxide 30 mmol/L (22-30); Chloride 107 mmol/L (98-107); Estimated CRCL calculation 78 ml/min; Estimated Glomerular Filt Rate > 60; Glucose 99 mg/dL (65-105); Magnesium 1.9 mg/dL (1.6-2.3); Potassium 3.7 mmol/L (3.4-5.0); Sodium 140 mmol/L (137-145)
[2021-01-14] MEDS: LORATADINE 10 MG TABLET PO (09:28)
[2021-01-14] MEDS: ONDANSETRON INJ 4 MG/2 ML VIAL IV PUSH ×2 (09:28→15:00)
[2021-01-14] MEDS: SODIUM CHLORIDE 0.9% IV 500 ML 100 ML IV CONT (09:40)
--- NOTE | 2021-01-14 09:45 | WPDMODSED ---
Moderate Sedation Note-Pt Data Patient Data Diagnosis: long history of chest pain clinically felt to be atypical of coronary disease Present Complaint: recurrent chest pain with multiple hospital admissions, abnormal stress test done as an outpatient Procedure to be performed/Plan: left heart catheterization Allergies Allergy/AdvReac Type Severity Reaction Status Date / Time cefprozil Allergy Severe Anaphylaxis Verified 01/13/21 00:41 Home Medications Medication Instructions Recorded Confirmed Type estradiol 2 mg tablet 2 mg PO HS 08/26/19 01/13/21 History alprazolam 1 mg tablet 1 mg PO BID PRN #60 tablet 11/18/20 01/13/21 Rx levothyroxine 25 mcg capsule 25 mcg PO DAILY #90 cap 11/23/20 01/13/21 Rx sertraline 100 mg tablet 100 mg PO HS #90 tablet 11/23/20 01/13/21 Rx lisinopril 30 mg tablet 30 mg PO DAILY #30 tablet 01/03/21 01/13/21 Rx nitroglycerin 0.4 mg SUBLINGUAL Q5MIN PRN 01/13/21 01/13/21 History omeprazole 20 mg PO DAILY 01/13/21 01/13/21 History Current Medications: Active Medications Acetaminophen (Acetaminophen 325 Mg Tablet) 650 mg PO Q4H PRN PRN Reason: Mild Pain (1-3) or Fever Last Admin: 01/14/21 01:59 Dose: 650 mg Documented by: Al Hydrox/Mg Hydrox/Simethicone (Mag Hydrox/Al Hydrox/Simeth 30 Ml Udc) 30 ml PO Q6H PRN PRN Reason: Indigestion Last Admin: 01/13/21 02:36 Dose: 30 ml Documented by: Aspirin (Aspirin 81 Mg Enteric Tablet) [address] [facility] Last Admin: 01/14/21 08:43 Dose: 81 mg Documented by: Carvedilol (Carvedilol 6.25 Mg Tablet) 6.25 mg PO Q12HR [facility] Last Admin: 01/14/21 08:44 Dose: 6.25 mg Documented by: Estradiol (Estradiol 1 Mg Tablet) 2 mg PO [facility] Stop: 02/12/21 21:01 Last Admin: 01/13/21 20:38 Dose: 2 mg Documented by: Hydralazine HCl (Hydralazine Hcl 20 Mg/Ml Vial) 10 mg IV PUSH Q8H PRN PRN Reason: see comment Stop: 01/15/21 07:00 Last Admin: 01/14/21 00:13 Dose: 10 mg Documented by: Sodium Chloride (Normal Saline Iv) 500 mls @ 100 mls/hr IV CONT .Q5H [facility] Levothyroxine Sodium (Levothyroxine Sodium 25 Mcg Tablet) 25 mcg PO DAILY@0630 [facility] Last Admin: 01/14/21 05:46 Dose: 25 mcg Documented by: Lisinopril (Lisinopril 10 Mg Tablet) 30 mg PO DAILY [facility] Last Admin: 01/14/21 08:44 Dose: 30 mg Documented by: Loratadine (Loratadine 10 Mg Tablet) 10 mg PO QAM [facility] Nitroglycerin (Nitroglycerin Sl 0.4 Mg Tablet) 0.4 mg SUBLINGUAL Q5MIN PRN PRN Reason: Chest Pain Pantoprazole Sodium (Pantoprazole Sod Sesquihydrate 20 Mg Tab) 20 mg PO QAM [facility] Last Admin: 01/14/21 08:44 Dose: 20 mg Documented by: Sertraline HCl (Sertraline Hcl 50 Mg Tablet) 100 mg PO [facility] Last Admin: 01/13/21 20:37 Dose: 100 mg Documented by: Sedation/Anesthesia: No previous sedation/anesthesia problems (including family history). [facility] Past Medical History Medical History Allergic rhinitis Anxiety disorder, unspecified Current moderate episode of major depressive disorder without prior episode Essential (primary) hypertension Not controlled Gastro-esophageal reflux disease without esophagitis History of breast cancer Status post bilateral mastectomy. No chemo radiation Hypothyroidism Irritable bowel syndrome with diarrhea Surgical History Surgical History H/O bilateral mastectomy Due to breast cancer. History of bladder surgery History of cholecystectomy History of hysterectomy History of total hysterectomy Family History Family History Father Malignant neoplasm of prostate CAD (coronary artery disease) Acute myocardial infarction Lymphoma Hypertension Mother Family history of malignant neoplasm of breast in first degree relative Sibling Hypertension Grandparent Breast cancer Grandparent Cerebrovascular accident Social History Social History (Reviewed 01/13/21 @ 10:57 by Joni
--- NOTE | 2021-01-14 09:50 | PC.NURSE ---
DR. PRADO TO BEDSIDE TO SEE PT. PRIOR TO CARDIAC CATH. PT. DENIES CP OR SOB THIS AM.
--- NOTE | 2021-01-14 10:05 | PC.NURSE ---
DOWN VIA STRETCHER FROM [facility] 3 TO [facility] OF [facility] FOR [facility] W/ DR. PRADO.
--- NOTE | 2021-01-14 10:46 | WPDCARDPROC ---
Cardiac Cath Procedure Note Date of procedure:: 01/14/21 Performing physician:: Cornelius Sosa MD Indication:: Chest pain Brief clinical history:: this is a 40-year-old woman with hypertension and smoking. She has a history of multiple admissions to the emergency room and hospital evaluations for chest pain that appears to be atypical of angina. Stress testing as an outpatient showed some electrocardiographic findings suggestive of ischemia and so an angiogram has been recommended Procedure Procedure performed:: left ventriculography coronary angiography Angio-Seal to right femoral artery Sedation/Medication given:: fentanyl 75 mg Versed 3 mg case start time 10 17 a.m. case end time 10:44 a.m. sedation provided by Maryann Morelos RN, trained observer Access site:: right femoral artery Estimated blood loss:: 10-15 cc Procedure note:: patient was brought to the cardiac catheterization lab in the postabsorptive state the right femoral triangle was prepared and draped in the usual fashion. Anesthesia was provided with 1% lidocaine infiltrated locally. Using modified Seldinger technique a 5 Nepalese sheath was placed into the femoral artery after this left heart catheterization was carried out a 5 Nepalese angled pigtail catheter used to document left-sided hemodynamics and injected LV g in the HARRIS projection. Following this the pigtail catheter was withdrawn and a 5 Nepalese FL4 catheter was used to engage and inject the left coronary artery a 5 Nepalese JR4 catheter was used to engage and inject the right coronary artery. After this the procedure was terminated angiogram was done of the femoral artery through the sheath after which a 6 Nepalese Angio-Seal device was deployed with a good hemostatic result. Findings:: Hemodynamics: Central aortic pressure is 155/85 left ventricle 155/3 end-diastolic pressure 10 there is no systolic gradient on pullback across the aortic valve. Left ventricle: The LV is normal in size all segments contract well there were no wall motion abnormalities. Ejection fraction is visually estimated to be 65%. Left main coronary artery is nicely patent the left anterior descending is a medium to small caliber artery. Distally the caliber of the LAD is rather small but it is free of atherosclerosis. Circumflex artery is medium in caliber giving rise to 2 marginal branches the circumflex is angiographically unremarkable right coronary artery is medium in caliber and dominant to the posterior circulation the right coronary artery is smooth and angiographically normal. Conclusion:: 1. Right coronary dominant circulation with no evidence of coronary disease 2. normal left ventricular systolic function 3. Angio-Seal to right femoral artery 4. chest pain syndrome appears to be noncardiac based on these findings Cornelius Sosa MD [facility]
[2021-01-14] MEDS: HYDROcodone/acetaminophen (*CRX) 5-325 MG TABLET 1 TAB PO (11:49)
--- NOTE | 2021-01-14 11:50 | PM.DS ---
DS: Admitting Diagnosis Admitting Diagnosis Admitting Diagnosis: Chief Complaint: chest pain yesterday all day DS: Discharge Diagnosis Discharge Diagnosis (1) Chest pain: Qualifiers: Chest pain type: unspecified Qualified Code(s): R07.9 - Chest pain, unspecified Code(s): R07.9 - Chest pain, unspecified Status: Acute Assessment and Plan: The patient has been placed in observation status. Acute chest pain may be secondary to anxiety, elevated blood pressure, musculoskeletal, or less likely acute coronary syndrome. Telemetry. NPO. Trend troponin. Patient has had a prior cholecystectomy. We will check a lipase that has not been done yet. Nitroglycerin for any further chest pain. Continue aspirin therapy. Cardiology has been consulted by ER provider. Check lipid panel in a.m.. Appreciate cardiology input. 01/13/21 16:43 and patient is a 40-year-old feet with chronic history hypertension, anxiety and depression with complaint recurrent chest pain patient presented emergency department complaint of chest pain patient 3 sets of cardiac enzymes are negative there is no acute changes on her EKG patient is seen by Cardiology since patient has recurrent chest pain it would be prudent to evaluate the patient with angiogram to assess coronary artery disease patient is scheduled for cardiac catheterization tomorrow further recommendation to follow (2) Uncontrolled hypertension: Code(s): I10 - Essential (primary) hypertension Status: Acute Assessment and Plan: Monitor blood pressure. P.r.n. IV antihypertensives as needed for severely elevated blood pressure. Continue home oral antihypertensives. (3) Hypothyroidism: Qualifiers: Hypothyroidism type: unspecified Qualified Code(s): E03.9 - Hypothyroidism, unspecified Code(s): E03.9 - Hypothyroidism, unspecified Status: Chronic Assessment and Plan: Continue levothyroxine. Check TSH reflex T4 in a.m.. (4) Anxiety disorder, unspecified: Qualifiers: Anxiety disorder type: unspecified anxiety disorder Qualified Code(s): F41.9 - Anxiety disorder, unspecified Code(s): F41.9 - Anxiety disorder, unspecified Status: Chronic Assessment and Plan: PRN ativan. Resume home xanax in am. (5) Current moderate episode of major depressive disorder without prior episode: Code(s): F32.1 - Major depressive disorder, single episode, moderate Status: Chronic Assessment and Plan: Continue Sertraline. (6) Tobacco dependence: Code(s): F17.200 - Nicotine dependence, unspecified, uncomplicated Status: Chronic Assessment and Plan: I have counseled the patient for 3 minutes on tobacco cessation. She has verbalized her understanding and agreement of same. DS: Summary Hospital Course Reason for hospitalization: Chief Complaint: chest pain yesterday all day Narrative: This is a 40-year-old female with known history of chronic hypertension, anxiety, and depression who presented to the hospital for evaluation of midsternal chest pain. 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 The patient was scheduled to have an elective cardiac angiogram done this following Sunday. Today the patient decided to come to the emergency room as she has had ongoing continuous midsternal chest pain radiating to her left arm throughout the day today. Associated symptoms include nausea and shortness of breath. Nitroglycerin has helped to alleviated her chest pain somewhat although she continues to have some chest discomfort. Patient denies any other significant symptoms such as fever, chills, cough, palpitations, sore throat, shortness of breath, abdominal pain, dysuria, nausea, vomiting, hematuria, diarrhea, rectal bleeding, or lower extremity swelling. The pat
--- NOTE | 2021-01-14 12:01 | PC.NURSE ---
RETURNS TO [facility] CHARTING AFTER PHASE II RECOVERY S/P [facility] W/ DR. PRADO. JUST RECEIVED NORCO 5/325MG PO X 1 AT 1149 FOR C/O R. GROIN/THIGH PAIN POST PROCEDURE/ANGIOSEAL. R. GROIN SITE REMAINS SOFT, NO HEMATOMA OR BLEEDING NOTED. IS TENDER ON PALPATION. PT. W/ ANXIETY. REASSURANCE GIVEN AND SIG OTHER AT BEDSIDE FOR SUPPORT. WILL CONTINUE TO MONITOR.
--- NOTE | 2021-01-14 17:25 | PC.NURSE ---
REVIEWED ALL DISCHARGE INSTRUCTIONS W/ PT. VOICED UNDERSTANDING. DISCHARGED HOME, OUT VIA WC TO SIG OTHER'S WAITING CAR WITH ALL PERSONAL BELONGINGS AND DISCHARGE PACKET. NO DISTRESS NOTED. NO C/O VOICED.
== END 2021-01-14 17:25 | disposition home or self-care (01) ==
LOC: ANHED 21:09 → ANHICU 01-13 03:31 → ANHCPC 01-14 11:50 → ANHICU 01-18 09:26
PROVIDERS: Emergency Medicine; Specialist; Admitting Provider Family Medicine; Emergency Provider Emergency Medicine; PCP Family Medicine; Visit Provider Family Medicine
PROC: 4A023N7 Measurement of Cardiac Sampling and Pressure, Left Heart, Percutaneous Approach (ICD-10-PCS; CPT 93452; principal; 2021-01-14 10:00)
DX: R07.9 Chest pain, unspecified (principal); R94.39 Abnormal result of other cardiovascular function study; E87.6 Hypokalemia; R06.02 Shortness of breath; R11.0 Nausea; I10 Essential (primary) hypertension; F41.9 Anxiety disorder, unspecified; F32.1 Major depressive disorder, single episode, moderate; E03.9 Hypothyroidism, unspecified; K58.0 Irritable bowel syndrome with diarrhea; K21.9 Gastro-esophageal reflux disease without esophagitis; Z85.3 Personal history of malignant neoplasm of breast; Z90.13 Acquired absence of bilateral breasts and nipples; F17.210 Nicotine dependence, cigarettes, uncomplicated; Z86.16 Personal history of COVID-19
CPT/HCPCS: 36415; 71046; 80048; 80061; 83690; 83735; 84443; 84484; 85025; 85027; 85610; 85730; 93005; 93458; 96365; 96372; 96374; 96375; 96376; 99285; A9270; C1760; C1887; C1894; G0269; G0378; J0131; J0360; J1644; J1650; J2250; J2405; J3010; J7040

== ENCOUNTER 2021-07-30 09:07 | Emergency (ER) | payer OTHER, SELFPAY ==
[2021-07-30 09:17] VITALS: BP 125/86; PULSE 83; RESP 18; TEMP 36; O2SAT 100
--- NOTE | 2021-07-30 09:52 | ED.URI ---
HPI - URI/Sore Throat General Chief Complaint: Upper Respiratory Infection Stated Complaint: Sore Throat,Ear Pain Time Seen by Provider: 07/30/21 09:45 Source: patient Mode of arrival: ambulatory Limitations: no limitations History of Present Illness HPI Narrative: Lise Apple is a 41 yo female with PMH of HTN, hypothyroid, anxiety, GERD, depression, seasonal allergies, who comes to [facility] with multiple respiratory symptoms. He started for 5 days ago and she has been taking [id number]-tprosek cold medication which is helped some things but she generally feels under the weather has a dry cough, subjective fever Has received both Cov[employer]ascale vaccines Related Data Home Medications Medication Instructions Recorded Confirmed estradiol 2 mg tablet 2 mg PO HS 08/26/19 01/13/21 nitroglycerin 0.4 mg SUBLINGUAL Q5MIN PRN 01/13/21 01/13/21 omeprazole 20 mg PO DAILY 01/13/21 01/13/21 Allergies Allergy/AdvReac Type Severity Reaction Status Date / Time cefprozil Allergy Severe Anaphylaxis Verified 01/13/21 00:41 Review of Systems Review of Systems: CONSTITUTIONAL: Subjective fever, chills, sweats. EYES: Denies visual changes, redness, discharge. ENT: Has rhinorrhea, congestion,has sore throat, bilateral otalgia. CARDIOVASCULAR: Denies chest pain, palpitations, edema. RESPIRATORY: Denies dyspnea, wheezing, dry cough GASTROINTESTINAL: Denies abdominal pain, nausea, vomiting, diarrhea. GENITOURINARY: Denies dysuria, hematuria, abnormal discharge SKIN: Denies rash or itching. NEUROLOGIC: Denies numbness, or focal weakness. PSYCHIATRIC: Denies anxiety or depression. [facility] Past Medical History Medical History Allergic rhinitis Anxiety disorder, unspecified Current moderate episode of major depressive disorder without prior episode Essential (primary) hypertension Not controlled Gastro-esophageal reflux disease without esophagitis History of breast cancer Status post bilateral mastectomy. No chemo radiation Hypothyroidism Irritable bowel syndrome with diarrhea Surgical History Surgical History H/O bilateral mastectomy Due to breast cancer. History of bladder surgery History of cardiac catheterization Cath was negative 01/14/2021 History of cholecystectomy History of hysterectomy History of total hysterectomy Family History Family History Father Malignant neoplasm of prostate CAD (coronary artery disease) Acute myocardial infarction Lymphoma Hypertension Mother Family history of malignant neoplasm of breast in first degree relative Sibling Hypertension Grandparent Breast cancer Grandparent Cerebrovascular accident Social History Social History Social History: She is . She smokes a a 4th to half pack of cigarettes a day. 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 She has 3 daughters. Patient wishes to be a full code. She does not have a durable power managing attorney. Smoking packs per day: 0.5 Smoking cigarettes per day: 10.0 Years smoked: 16 Smoking pack-years: 8.00 Smoking status: Former smoker Tobacco type: cigarettes Second hand tobacco smoke exposure: No Additional smoking assessment comments: Smokes 2-10 cigarettes a day on and off for 16 yrs Alcohol intake: current Drinks per week: 4 Alcohol use details: Drinks socially Substance use: never Gender identity (if verbalized by the patient): Female Spiritual care concerns: No Comments Minor Exam Narrative: GENERAL: This is a well-nourished, well-developed patient, in mild distress. HEAD: normocephalic, atraumatic. EYES:. Sclera clear/white. Vision is grossly intact. EARS: External ears normal, auditory canals erythema and without drainage, with fluid behind both TMs . Hearing grossly intact
== END 2021-07-30 10:39 | disposition home or self-care (01) ==
PROVIDERS: Emergency Provider Nurse Practitioner; PCP Family Medicine
DX: H92.03 Otalgia, bilateral (principal); R09.89 Other specified symptoms and signs involving the circulatory and respiratory systems; Z87.891 Personal history of nicotine dependence; K21.9 Gastro-esophageal reflux disease without esophagitis; E03.9 Hypothyroidism, unspecified; Z85.3 Personal history of malignant neoplasm of breast; Z90.13 Acquired absence of bilateral breasts and nipples; Z90.710 Acquired absence of both cervix and uterus; F41.9 Anxiety disorder, unspecified; F32.9 Major depressive disorder, single episode, unspecified
CPT/HCPCS: 87081; 87804; 87880; 99213; G0463

== ENCOUNTER → 2021-08-05 05:29 | Outpatient (CLI) | payer OTHER, SELFPAY ==
[2021-08-05 16:43] LABS: SARS-CoV-2 RNA PCR Negative
== END ==
PROVIDERS: PCP Family Medicine; Visit Provider Physician Assistant
DX: R05.9 Cough, unspecified (principal); Z20.822 Contact with and (suspected) exposure to COVID-19
CPT/HCPCS: C9803; U0003; U0005

== ENCOUNTER → 2022-06-28 08:03 | Outpatient (CLI) | payer OTHER, SELFPAY ==
--- NOTE | ~2022-06-28 | US_ITS ---
EXAMINATION: US retroperitoneal duplex ltd DATE: 06/28/2022 08:25 INDICATION: hypertension TECHNIQUE: Multiple grayscale, color Doppler, and pulsed Doppler images of the kidneys and renal edinson selina were obtained. COMPARISON: None. FINDINGS: The aorta peak systolic velocity is 106 cm/s. The right renal artery peak systolic velocity is 105 cm /s in the proximal segment, 97 cm/s in the mid segment, and 78 cm/s in the distal segment. The left r enal artery peak systolic velocity is 102 cm/s in the proximal segment, 96 cm/s in the mid segment, a nd 108 cm/s in the distal segment. Bilateral kidneys demonstrate normal contour and echogenicity with no hydronephrosis. IMPRESSION: 1. No Doppler evidence of renal artery stenosis. Reviewed, dictated and finalized at location A.
== END ==
PROVIDERS: PCP Internal Medicine Cardiovascular Disease; Visit Provider Internal Medicine Cardiovascular Disease
DX: I10 Essential (primary) hypertension (principal)
CPT/HCPCS: 93976

== ENCOUNTER 2022-12-15 11:45 | Emergency (ER) | payer OTHER, SELFPAY ==
[2022-12-15] VITALS (23 sets, daily range): BP systolic 165–194; BP diastolic 92–131; PULSE 60–76; RESP 11–25; TEMP 36.7; O2SAT 94–100
--- NOTE | ~2022-12-15 | XR_ITS ---
Clinical Indication: Chest pain PA and lateral views of the chest: Comparison: 01/12/2021 Findings: The lungs are clear, without evidence of focal consolidation or pleural effusion. Cardiome diastinal silhouette is within normal limits. Bones and soft tissues are unremarkable. Impression: Normal chest. Reviewed, dictated and finalized at location . DISPENSER Impression: Normal chest.
--- NOTE | 2022-12-15 12:09 | ECG_ITS ---
Measurements Intervals [place] Rate: 63 P: 41 MN: 148 QRS: 39 QRSD: 97 T: 38 QT: 411 QTc: 422 Interpretive Statements SINUS RHYTHM INCOMPLETE RIGHT BUNDLE BRANCH BLOCK DELAYED PRECORDIAL R/S TRANSITION BASELINE ARTIFACT- I, II, AVR BORDERLINE ECG COMPARED TO ECG 01/13/2021 01:14:08 NO SIGNIFICANT CHANGES Electronically Signed On 12-15-2022 16:49:29 ADVERTISING SALES MANAGER by Live Ayala D.O.
[2022-12-15 12:42] LABS: Basophils Percent Auto 0.4 % (0.2-1.2); Eosinophils Absolute Auto 0.1 K/mm3 (0-0.3); Eosinophils Percent Auto 1.1 % (0-4.4); Hematocrit 39.5 % (37.0-47.0); Hemoglobin 13.1 g/dL (12.0-15.0); Immature Granulocyte Absolute 0.02 K/mm3 (0.00-0.031); Immature Granulocyte Percent A 0.2 % (0-0.5); Lymphocytes Absolute Auto 1.61 K/mm3 (0.9-3.2); Mean Corpuscular HGB Conc 33.2 g/dl (32-36); Mean Corpuscular Hemoglobin 31.3 pg (26-34); Mean Corpuscular Volume 94.3 fl (80-100); Mean Platelet Volume 12.2 fl (7.4-10.4); Monocytes Absolute Auto 0.4 K/mm3 (0.1-0.6); Monocytes Percent Auto 4.1 % (2.6-8.5); Neutrophils Absolute Auto 6.8 K/mm3 (1.3-6.7); Neutrophils Percent Auto 76.2 % (45.5-73.1); Platelet Count Result 196 k/mm3 (150-375); Red Blood Count 4.19 M/mm3 (4.2-5.4); Red Cell Distribution Width 13.2 % (11.5-14.5); White Blood Count 8.9 K/mm3 (4.5-10.0)
--- NOTE | 2022-12-15 12:45 | PC.NURSE ---
Pt to XRAY via w/c at this time.
[2022-12-15 12:52] LABS: Alanine Aminotransferase 19 U/L (6-35); Albumin Level 4.4 g/dL (3.5-5.1); Alkaline Phosphatase 43 U/L (38-126); Anion Gap 3 mmol/L (8-16); Aspartate Amino Transferase 23 U/L (14-36); Bilirubin,Total 0.5 mg/dL (0.2-1.3); Blood Urea Nitrogen 11 mg/dL (7-17); Carbon Dioxide 32 mmol/L (22-30); Chloride 101 mmol/L (98-107); Estimated Glomerular Filt Rate > 60; Glucose 88 mg/dL (65-110); Lipase 85 U/L (23-300); Potassium 3.8 mmol/L (3.4-5.0); Sodium 136 mmol/L (137-145)
[2022-12-15 12:58] LABS: Partial Thromboplastin Time 28.2 SECONDS (22.3-36.8)
[2022-12-15 13:03] LABS: Troponin I < 0.012 ng/mL (0.000-0.034)
[2022-12-15 13:45] LABS: Appearance Urine Clear (Clear); Bacteria Urine None Seen /hpf; Bilirubin Urine Negative (Negative); Blood Urine 1+ (Negative); Color Urine Dark Yellow (Yellow); Glucose Urine UA Negative (Negative); Ketones Urine Negative (Negative); Leukocyte Esterase Ur 2+ LEU/UL (Negative); Need Manual Microscopic Reviewed; Nitrate Urine Positive (Negative); Non Pathogenic Casts 0-2; Protein Urine Negative (Negative); RBC Urine 0-2 /hpf (0-2); Specific Grav Ur 1.005 (1.001-1.035); Squamous Epithelial Cell Urine None seen /hpf (Few); Urobilinogen Urine 0.2 mg/dL (<2.0); WBC Urine 21-50 /hpf
[2022-12-15 13:49] LABS: Add Urine Microscopic? YES
--- NOTE | 2022-12-15 16:15 | ED.CHESTPAIN ---
HPI - Chest Pain General Chief Complaint: Chest Pain Stated Complaint: chest pain, hypertension Time Seen by Provider: 12/15/22 15:44 History of Present Illness HPI narrative: 42 year old female here for evaluation of chest pain and shortness of breath over the past 4 days. Patient does have a history of chest pain and has underwent cardiac catheterization that has been negative for coronary artery disease in 2020. She reports intermittent chest pain ever since typically relieved by nitroglycerin. Yesterday she did have relief of her chest pain with nitro but she presents today due to concerns of her elevated blood pressure as well. She has been compliant with her antihypertensives and her assembler watch train is Dr. Stone. She denies any leg swelling, fevers or chills, cough, or sick contacts. Related Data Home Medications Medication Instructions Recorded Confirmed estradiol 2 mg tablet 2 mg PO HS 08/26/19 11/08/22 nitroglycerin 0.4 mg sublingual 0.4 mg sublingual Q5MIN PRN Chest 01/13/21 11/08/22 tablet Pain omeprazole 20 mg capsule,delayed 20 mg PO DAILY 01/13/21 11/08/22 release loratadine 10 mg tablet 10 mg PO QAM PRN 11/28/21 11/08/22 Allergies Allergy/AdvReac Type Severity Reaction Status Date / Time cefprozil Allergy Severe Anaphylaxis Verified 11/08/22 15:06 Review of Systems Review of Systems: Gen.: Denies fevers or chills Eyes: Denies eye pain or visual change ENT: Denies congestion Respiratory: Reports shortness of breath CV: Reports chest pain GI: Denies abdominal pain nausea, emesis or diarrhea denies burning, urgency, frequency or hematuria Musculoskeletal: Denies back pain or muscle pain Neuro: Denies numbness, tingling, weakness or focal weakness Skin: Denies rash Except as documented, all other systems reviewed and negative [facility] Past Medical History Medical History Allergic rhinitis Anxiety disorder, unspecified Current moderate episode of major depressive disorder without prior episode Essential (primary) hypertension Not controlled Gastro-esophageal reflux disease without esophagitis History of breast cancer Status post bilateral mastectomy. No chemo radiation Hypothyroidism Irritable bowel syndrome with diarrhea Surgical History Surgical History H/O bilateral mastectomy Due to breast cancer. History of bladder surgery History of cardiac catheterization Cath was negative 01/14/2021 History of cholecystectomy History of hysterectomy History of total hysterectomy Family History Family History Father Malignant neoplasm of prostate CAD (coronary artery disease) Acute myocardial infarction Lymphoma Hypertension Mother Family history of malignant neoplasm of breast in first degree relative Sibling Hypertension Grandparent Breast cancer Grandparent Cerebrovascular accident Daughter Celiac disease Social History Social History (Updated 11/08/22 @ 15:07 by Palmira Alex [facility]) Social History: She is . She smokes a a 4th to half pack of cigarettes a day. 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 Patient wishes to be a full code. She does not have a durable power state's attorney. Smoking packs per day: 0.5 Smoking cigarettes per day: 10.0 Years smoked: 16 Smoking pack-years: 8.00 Smoking status: Current every day smoker Tobacco type: cigarettes Second hand tobacco smoke exposure: No Additional smoking assessment comments: Smokes 2-10 cigarettes a day on and off for 16 yrs Alcohol intake: current Drinks per week: 4 Alcohol use details: Drinks socially Substance use: never Lack of Transportation: No Lack of Food: Never True Current Housing: I Have Housing Concerned About Future Housing: No Difficulty Paying Gas/Electric Bills: No
[2022-12-15 16:25] LABS: Troponin I < 0.012 ng/mL (0.000-0.034)
[2022-12-15] MEDS: LORazepam (*CRX) 0.5 MG TABLET PO ×2 (16:52→17:20)
[2022-12-15 17:07] LABS: D Dimer < 0.27 ug/mL (<0.48)
[2022-12-15] MEDS: ACETAMINOPHEN 325 MG TABLET 650 MG PO (17:20)
[2022-12-15 17:26] LABS: Influenza A QL RT-PCR Negative (Negative); Influenza B QL RT-PCR Negative (Negative); SARS-CoV-2 RNA PCR Negative
--- NOTE | 2022-12-15 18:00 | PC.NURSE ---
Pt. took their home dose of carvedilol 25mg at 1800. ERP aware and is ok with patient taking their own dose.
--- NOTE | 2022-12-15 19:10 | PC.NURSE ---
Report received from JORGE Arriaza. Assumed care of patient at this time.
[2022-12-15 19:17] LABS: Troponin I < 0.012 ng/mL (0.000-0.034)
[2022-12-15] MEDS: HYDROcodone/acetaminophen (*CRX) 5-325 MG TABLET 1 TAB PO (19:31)
== END 2022-12-15 19:36 | disposition home or self-care (01) ==
PROVIDERS: Emergency Medicine; Emergency Provider Physician Assistant; PCP Family Medicine
DX: N39.0 Urinary tract infection, site not specified (principal); R07.89 Other chest pain; R06.02 Shortness of breath; I10 Essential (primary) hypertension; K21.9 Gastro-esophageal reflux disease without esophagitis; Z85.3 Personal history of malignant neoplasm of breast; F17.210 Nicotine dependence, cigarettes, uncomplicated; Z79.51 Long term (current) use of inhaled steroids; Z20.822 Contact with and (suspected) exposure to COVID-19
CPT/HCPCS: 36415; 71046; 80053; 81001; 83690; 84484; 85025; 85380; 85610; 85730; 87086; 87636; 93005; 99284; A9270

== ENCOUNTER 2023-01-01 13:32 | Emergency (ER) | payer OTHER, SELFPAY ==
--- NOTE | ~2023-01-01 | XR_ITS ---
EXAMINATION: XR chest 2V Exam Date/Time: 01/01/2023 14:15 CDT HISTORY: cp/ sob BP MEDS CHANGED, HX BREAST CA, BILAT MASTECTOMY Comparison: 12/15/2022. RESULT: Lines, tubes, and devices: Bilateral breast augmentation. Surgical clips over the bilateral breasts. Cholecystectomy clips. Lungs and pleura: Clear. Cardiomediastinal silhouette: Stable. Other: No acute osseous or upper abdominal finding. IMPRESSION: No acute cardiopulmonary process. Reviewed, dictated and finalized at location K.
--- NOTE | 2023-01-01 13:45 | ECG_ITS ---
Measurements Intervals [place] Rate: 86 P: 57 VT: 134 QRS: 70 QRSD: 91 T: 53 QT: 373 QTc: 447 Interpretive Statements SINUS RHYTHM INCOMPLETE RIGHT BUNDLE BRANCH BLOCK BORDERLINE ECG COMPARED TO ECG 12/15/2022 12:26:35 NO SIGNIFICANT CHANGES Electronically Signed On 01-01-2023 14:55:00 CDT by Live Ayala D.O.
[2023-01-01 13:54] VITALS: BP 116/86; PULSE 91; RESP 15; TEMP 36.8; O2SAT 100
[2023-01-01 14:14] LABS: Basophils Absolute Auto 0.1 K/mm3 (0.0-0.1); Basophils Percent Auto 0.9 % (0.2-1.2); Eosinophils Absolute Auto 0.1 K/mm3 (0-0.3); Eosinophils Percent Auto 1.7 % (0-4.4); Hematocrit 39.6 % (37.0-47.0); Hemoglobin 13.5 g/dL (12.0-15.0); Immature Granulocyte Absolute 0.02 K/mm3 (0.00-0.031); Immature Granulocyte Percent A 0.3 % (0-0.5); Lymphocytes Absolute Auto 2.66 K/mm3 (0.9-3.2); Mean Corpuscular HGB Conc 34.1 g/dl (32-36); Mean Corpuscular Volume 90.8 fl (80-100); Mean Platelet Volume 12.8 fl (7.4-10.4); Monocytes Absolute Auto 0.6 K/mm3 (0.1-0.6); Monocytes Percent Auto 8.1 % (2.6-8.5); Neutrophils Absolute Auto 3.6 K/mm3 (1.3-6.7); Platelet Count Result 207 k/mm3 (150-375); Red Blood Count 4.36 M/mm3 (4.2-5.4); Red Cell Distribution Width 12.2 % (11.5-14.5)
[2023-01-01 14:20] LABS: Alanine Aminotransferase 26 U/L (6-35); Albumin Level 4.9 g/dL (3.5-5.1); Alkaline Phosphatase 49 U/L (38-126); Anion Gap 6 mmol/L (8-16); Aspartate Amino Transferase 29 U/L (14-36); Bilirubin,Total 0.5 mg/dL (0.2-1.3); Blood Urea Nitrogen 17 mg/dL (7-17); Calcium 9.4 mg/dL (8.4-10.2); Carbon Dioxide 32 mmol/L (22-30); Chloride 100 mmol/L (98-107); Estimated CRCL calculation 70 ml/min; Estimated Glomerular Filt Rate > 60; Glucose 93 mg/dL (65-110); INR 1.1; Lipase 130 U/L (23-300); Potassium 3.7 mmol/L (3.4-5.0); Prothrombin Time 13.5 Seconds (11.1-14.7); Sodium 138 mmol/L (137-145)
[2023-01-01 14:21] LABS: Partial Thromboplastin Time 29.5 SECONDS (22.3-36.8)
[2023-01-01 14:33] LABS: Troponin I < 0.012 ng/mL (0.000-0.034)
--- NOTE | 2023-01-01 16:31 | PC.NURSE ---
Pt refuses to sign discharge papers 'because she states she was not treated by MD. Pt stated she just had a PVC and now she is going to leave and something could happen and her family will marquise for not being treated. Pt states no one will help me because Im not having a heart attack! Pt was tearful at discharge.
--- NOTE | 2023-01-01 16:55 | ED.CHESTPAIN ---
HPI - Chest Pain General Chief Complaint: Chest Pain Stated Complaint: chest pain Time Seen by Provider: 01/01/23 15:25 History of Present Illness HPI narrative: Patient states that for the past 2 years, she has been having intermittent pain to her chest, shortness of breath, and overall not feeling well. Has seen a bed bug exterminator for this and had extensive work-up including a negative cath done 2 years ago. Been attributing this to possible blood pressure issues, initially high BPs then labial pressures, and has had multiple work-ups for this and has her blood pressure medications changed multiple times. She feels that since her most recent change, her blood pressure has been improved or sometimes too low, however she is still having these chest pains and shortness of breath episodes. She does have a history of anxiety however states that this does not feel like her anxiety attacks. Called her bed bug exterminator earlier who office told her to come to the ER. Related Data Home Medications Medication Instructions Recorded Confirmed estradiol 2 mg tablet 2 mg PO HS 08/26/19 11/08/22 nitroglycerin 0.4 mg sublingual 0.4 mg sublingual Q5MIN PRN Chest 01/13/21 11/08/22 tablet Pain omeprazole 20 mg capsule,delayed 20 mg PO DAILY 01/13/21 11/08/22 release loratadine 10 mg tablet 10 mg PO QAM PRN 11/28/21 11/08/22 Allergies Allergy/AdvReac Type Severity Reaction Status Date / Time cefprozil Allergy Severe Anaphylaxis Verified 01/01/23 13:44 Review of Systems Review of Systems: CONST: malaise HEENT: No sore throat C/V: chest pain RESP: Shortness of breath GI: No abdominal pain : No dysuria. M/S: No joint pain. SKIN: No rash. NEURO: [No focal numbness or weakness] PSYCH: Upset about how she hasn't been able to get an answer to her symptoms PMFSH Past Medical History Medical History Allergic rhinitis Anxiety disorder, unspecified Current moderate episode of major depressive disorder without prior episode Essential (primary) hypertension Not controlled Gastro-esophageal reflux disease without esophagitis History of breast cancer Status post bilateral mastectomy. No chemo radiation Hypothyroidism Irritable bowel syndrome with diarrhea Surgical History Surgical History H/O bilateral mastectomy Due to breast cancer. History of bladder surgery History of cardiac catheterization Cath was negative 01/14/2021 History of cholecystectomy History of hysterectomy History of total hysterectomy Family History Family History Father Malignant neoplasm of prostate CAD (coronary artery disease) Acute myocardial infarction Lymphoma Hypertension Mother Family history of malignant neoplasm of breast in first degree relative Sibling Hypertension Grandparent Breast cancer Grandparent Cerebrovascular accident Daughter Celiac disease Social History Social History Social History: She is . She smokes a a 4th to half pack of cigarettes a day. 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 She has 3 daughters. Patient wishes to be a full code. She does not have a durable power city attorney. Smoking packs per day: 0.5 Smoking cigarettes per day: 10.0 Years smoked: 16 Smoking pack-years: 8.00 Smoking status: Current every day smoker Tobacco type: cigarettes Second hand tobacco smoke exposure: No Additional smoking assessment comments: Smokes 2-10 cigarettes a day on and off for 16 yrs Alcohol intake: current Drinks per week: 4 Alcohol use details: Drinks socially Substance use: never Lack of Transportation: No Lack of Food: Never True Current Housing: I Have Housing Concerned About Future Housing: No Difficulty Paying Gas/Electric Bills: No Difficulty Paying for Meds: No Currently Unemploye
== END 2023-01-01 16:15 | disposition home or self-care (01) ==
PROVIDERS: Emergency Medicine; Emergency Provider Emergency Medicine; PCP Family Medicine
DX: R07.9 Chest pain, unspecified (principal); I10 Essential (primary) hypertension; E03.9 Hypothyroidism, unspecified; K21.9 Gastro-esophageal reflux disease without esophagitis; K58.0 Irritable bowel syndrome with diarrhea; F41.9 Anxiety disorder, unspecified; Z85.3 Personal history of malignant neoplasm of breast; Z90.13 Acquired absence of bilateral breasts and nipples; Z90.710 Acquired absence of both cervix and uterus; F17.210 Nicotine dependence, cigarettes, uncomplicated; I45.10 Unspecified right bundle-branch block
CPT/HCPCS: 36415; 71046; 80053; 83690; 84484; 85025; 85610; 85730; 93005; 99284